=== PATIENT | female | born 1965 | race Caucasian/White ===

== ENCOUNTER 2023-01-03 16:57 | Outpatient (RCR) | payer OTHER, SELFPAY ==
--- NOTE | 2023-01-03 17:32 | PTOPEVAL1 ---
Assessment and note entered by Fox Porter Evaluation Information Assessment Status Evaluation Diagnosis right posterior knee pain Onset 12/27/22 Subjective Information Pt. reports she developed right knee pain about 1 year ago. she reports that at the time she was doing a lot of bike riding. She describes pain in the back side of the right knee. She does notice some popping in the knee with walking. She reports she has not had xray or MRI of the right knee. She reports that her pain comes and goes. She does get occasional pain at rest. 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 She does enjoy exercise but has been avoiding exercise due to her pain. she reports that her goal is to reduce her knee pain. Reported Pain Level Pain Score 3: Self Report Assessment PT Clinical Summary Pt. is a 57 year old female who enters the clinic with posterior right knee pain. Pt. presents with indication of both patellofemoral syndrome and possible meniscus pathology. She presents with impaired knee mobility, impaired l.e. strength, impaired gait and pain. continued skilled PT is indicated in order to improve these areas to allow for improved comfort with IADL performance. Plan of Care Interventions Electrical Stimulation,Gait Training,Hot Pack/Cold Pack,Manual Therapy,Neuro Re-education, Therapeutic Activities,Therapeutic Exercise,Self- Care/Home Management PT Services Indicated Yes Treatment Frequency and 2x/week x 8 visits Duration These treatments will address the objective and functional deficits as defined above. The patient will be advanced safely and appropriately in order for the patient to progress towards his/her prior level of function. Additional exercises will be introduced and as well as a comprehensive home exercise program upon discharge, if needed, ?to ensure carryover of functional gains achieved in the clinic. This treatment plan has been reviewed and agreement upon by the patient.
--- NOTE | 2023-01-03 17:45 | OPREHPOC ---
Outpatient Therapy Plan of Care This is a Multidisciplinary Plan of Care that may contain components documented by all disciplines (PT, OT, and ST.) PT Problem 1 PT Problem #1 Knowledge Deficit PT Goal 1 Goal Pt. will be independent with a HEP addressing strength and mobility. Target Visit 2 PT Problem 2 PT Problem #2 Pain PT Goal 1 Goal Pt. will reduce pain to 2/10 at worst with prolonged standing activities. Target Visit 8 PT Problem 3 PT Problem #3 Impaired Range of Motion PT Goal 1 Goal Pt. will achieve 125 degrees right knee flexion AROM Target Visit 8 PT Problem 4 PT Problem #4 Impaired Strength PT Goal 1 Goal Pt. will increase right HS strength to 5/5 with no pain with resistance. Target Visit 8 PT Goal 2 Goal Pt. will be able to ambulate over level surface without deviation. Target Visit 8
--- NOTE | 2023-01-30 17:09 | OPREHPOC ---
Outpatient Therapy Plan of Care This is a Multidisciplinary Plan of Care that may contain components documented by all disciplines (PT, OT, and ST.) PT Problem 1 PT Problem #1 Knowledge Deficit PT Goal 1 Goal Pt. will be independent with a HEP addressing strength and mobility. Target Visit 2 Progress Met PT Problem 2 PT Problem #2 Pain PT Goal 1 Goal Pt. will reduce pain to 2/10 at worst with prolonged standing activities. Target Visit 8 Progress Not Met PT Problem 3 PT Problem #3 Impaired Range of Motion PT Goal 1 Goal Pt. will achieve 125 degrees right knee flexion AROM Target Visit 8 Progress Met PT Problem 4 PT Problem #4 Impaired Strength PT Goal 1 Goal Pt. will increase right HS strength to 5/5 with no pain with resistance. Target Visit 8 Progress Met PT Goal 2 Goal Pt. will be able to ambulate over level surface without deviation. Target Visit 8 Progress Met
--- NOTE | 2023-01-30 17:10 | PTOPDC ---
Assessment and note entered by JT File, PT Evaluation Information Assessment Status Discharge Diagnosis right posterior knee pain Onset 12/27/22 Subjective Information patient reports she really only has pain still with prolonged standing. she reports walking and exercises do not bother her, except for a bit of tightness in the R knee at times. she reports she is nervous to return to work later this week, but does not want surgery. Reported Pain Level Pain Score 4: Self Report Assessment PT Clinical Summary mrs. flor presents to skilled PT services for her 8th skilled therapy visit. she presents with continued pain at times in the R posterior knee. however, she has met all goals except pain goal for PT. she was educated in the benefits of continued HEP exercises at home, and thoughts on considering injection to the R knee if needed. she will DC skilled PT today. Plan of Care PT Services Indicated Yes
== END 2023-01-30 17:34 | disposition home or self-care (01) ==
LOC: CHSPT 16:57
PROVIDERS: PCP Family Medicine
DX: M25.561 Pain in right knee (principal)
CPT/HCPCS: 97014; 97110; 97112; 97161; 97530; G0283